=== PATIENT | female | born 1990 | race Caucasian/White ===

== ENCOUNTER 2018-08-03 09:14 | Emergency (ER) | payer MEDICAID, SELFPAY ==
--- NOTE | 2018-08-03 09:19 | W.ED.GENAD ---
Discharge Plan Disposition Patient Disposition: HOME Condition: Stable Discharge Details Chief Complaint: Nk/Back Pain Clinical Impression: Back contusion Primary Care Provider: [place] [facility] Provider: Stephan Mclean Home Meds and New Rx's Prescriptions: New cyclobenzaprine 10 mg tablet 10 mg PO TID PRN (Reason: muscle spasm) Qty: 20 RF: 0 No Action Mirena 1 EACH intrauterine device RF: 0 Discharge Instructions Instructions: Contusion in Adults (ED) Additional Instructions: you can take 1000mg tylenol and 600mg ibuprofen every 6 hours as needed for pain. If you take the cyclobenzaprine do not drink alcohol or operate heavy machinery if pain is not better in a week see your primary care provider return to the emergency department if you have pain in the lower back with high fevers or difficulty urinating Medical Decision Making 28 yo female comes in with lower back pain that started yesterday after her child tackled her from the front and caused her to land on her back. Denies head trauma or loc, no headache, vomit and no neck pain even on rom, meets criteria per [facility] head ct rules and nexus to not image head or c spine. comes in with lower back pain that is throughout the lumbar region, does have some midline pain. no saddle anesthesia, weakness or other findings at this time to suggest cauda equina and no fevers or reported ivdu so doubt sea. will obtain xray to eval for fx though I suspect contusion xray negative on my read, still no deficits on neuro exam. Isaías ld/c home, advised f/u with pcp and return precautions given Differential Diagnosis back strain, contusion, sprain, fx Imaging Data Radiologic Study: Attestation: I personally reviewed and interpreted this imaging study as follows: Imaging: X-Ray My impression: no acute findings HPI General Mode of arrival: ambulatory. Date/Time Provider Initiated Documentation: 08/03/18 09:19. Limitations to Documentation: no limitations. Information obtained by: patient. History of Present Illness 28 year old F presents to the emergency department with the chief complaint of back pain, described as moderate, with intensity rated at 5. Quality is described as aching, and is localized to the back. Patient reports no radiation. Patient started experiencing this day(s) (1) and it has been constant. No relieving factors improve symptom(s), No exacerbating factors reported . Patient notes no other symptoms.. Patient did receive the following treatments prior to arrival, NSAID Related Data Home Medications Medication Instructions Recorded Confirmed Mirena 07/26/17 cyclobenzaprine 10 mg PO TID PRN #20 tab 08/03/18 Previous Rx's Medication Instructions Recorded cyclobenzaprine 10 mg PO TID PRN #20 tab 08/03/18 Allergies Allergy/AdvReac Type Severity Reaction Status Date / Time amoxicillin Allergy Mild Hives Unverified 08/03/18 09:26 codeine Allergy Mild Hives Unverified 08/03/18 09:26 ciprofloxacin [From Ciprodex] AdvReac Mild Other (See Unverified 08/03/18 09:26 Comment) dexamethasone [From Ciprodex] AdvReac Mild Other (See Unverified 08/03/18 09:26 Comment) Review of Systems Review of Systems All systems reviewed & are unremarkable except as noted in HPI and below Constitutional Denies chills, Denies fever(s) and Denies weakness Eyes Denies loss of vision Cardiovascular Denies chest pain and Denies dyspnea Respiratory Denies cough and Denies dyspnea Gastrointestinal Denies abdominal pain, Denies nausea and Denies vomiting Genitourinary Denies dysuria Musculoskeletal Denies joint swelling Integumentary/Breasts Denies rash Neurologic Denies loss of vision and Denies weakness [facility] Social History Do you feel safe in your relationship?: Yes Exam Const General: no acute distress Orientation: alert HENMT Head: normal to inspection Ears: external ears normal General nose exam: external nose normal Mouth: moist mucous membranes Eyes General: appearance normal, both eyes and all related structures Neck Neck: normal visual inspection Resp Effort & Inspection: normal respiratory effort and able to speak in complete sentences Cardio Rate: regular rate Back/Spine/Pelvis Back: no CVA tenderness Skin General skin exam: no rashes or lesions noted Neuro General: alert and oriented x3 Extrem General: normal to inspection Psych Mental Status: mental status grossly normal
[2018-08-03 09:22] VITALS: BP 116/67; PULSE 67; RESP 14; TEMP 36.5; O2SAT 100
--- NOTE | 2018-08-03 09:27 | DI.RAD_ITS ---
SYMPTOM/DIAGNOSIS: PAIN, S/P FALL LUMBAR SPINE: The vertebral bodies are intact. The disc spaces are well maintained. The pedicle, spinous and transverse processes are unremarkable. There is no evidence of spondylosis or spondylolisthesis and the facet joints are intact. No abnormality involving the sacrum or sacroiliac joints is apparent. An IUD is incidentally noted in the pelvis. SUMMARY: No evidence of a fracture or subluxation. Normal lumbar spine.
--- NOTE | 2018-08-03 09:29 | ED.GENADUL_ITS ---
Discharge Plan Disposition Patient Disposition: HOME Condition: Stable Discharge Details Chief Complaint: Nk/Back Pain Clinical Impression: Back contusion Primary Care Provider: [place] [facility] Provider: Stephan Mclean Home Meds and New Rx's Prescriptions: New cyclobenzaprine 10 mg tablet 10 mg PO TID PRN (Reason: muscle spasm) Qty: 20 RF: 0 No Action Mirena 1 EACH intrauterine device RF: 0 Discharge Instructions Instructions: Contusion in Adults (ED) Additional Instructions: you can take 1000mg tylenol and 600mg ibuprofen every 6 hours as needed for pain. If you take the cyclobenzaprine do not drink alcohol or operate heavy machinery if pain is not better in a week see your primary care provider return to the emergency department if you have pain in the lower back with high fevers or difficulty urinating Medical Decision Making 28 yo female comes in with lower back pain that started yesterday after her child tackled her from the front and caused her to land on her back. Denies head trauma or loc, no headache, vomit and no neck pain even on rom, meets cri teria per [facility] head ct rules and nexus to not image head or c spine. comes in with lower back pain that is throughout the lumbar region, does have some midline pain. no saddle anesthesia, weakness or other findings at this time to suggest cauda equina and no fevers or reported ivdu so doubt sea. will obtain xray to eval for fx though I suspect contusion xray negative on my read, still no deficits on neuro exam. Isaías ld/c home, advised f/u with pcp and return precautions given Differential Diagnosis back strain, contusion, sprain, fx Imaging Data Radiologic Study: Attestation: I personally reviewed and interpreted this imaging study as follows: Imaging: X-Ray My impression: no acute findings HPI General Mode of arrival: ambulatory . Date/Time Provider Initiated Documentation: 08/03/18 09:19 . Limitations to Documentation: no limitations . Information obtained by: patient . History of Present Illness 28 year old F presents to the emergency department with the chief complaint of back pain, described as moderate, with intensity rated at 5. Quality is described as aching, and is localized to the back. Patient reports no radiation. Patient started experiencing this day(s) (1) and it has been constant. No relieving factors improve symptom(s), No exacerbating factors reported . Patient notes no other symptoms.. Patient did receive the following treatments prior to arrival, NSAID Related Data Home Medications Medication Instructions Recorded Confirmed Mirena 07/26/17 cyclobenzaprine 10 mg PO TID PRN #20 tab 08/03/18 Previous Rx's Medication Instructions Recorded cyclobenzaprine 10 mg PO TID PRN #20 tab 08/03/18 Allergies Allergy/AdvReac Type Severity Reaction Status Date / Time amoxicillin Allergy Mild Hives Unverified 08/03/18 09:26 codeine Allergy Mild Hives Unverified 08/03/18 09:26 ciprofloxacin [From Ciprodex] AdvReac Mild Other (See Unverified 08/03/18 09:26 Comment) dexamethasone [From Ciprodex] AdvReac Mild Other (See Unverified 08/03/18 09:26 Comment) Review of Systems Review of Systems All systems reviewed & are unremarkable except as noted in HPI and below Constitutional Denies chills, Denies fever(s) and Denies weakness Eyes Denies loss of vision Cardiovascular Denies chest pain and Denies dyspnea Respiratory Denies cough and Denies dyspnea Gastrointestinal Denies abdominal pain, Denies nausea and Denies vomiting Genitourinary Denies dysuria Musculoskeletal Denies joint swelling Integumentary/Breasts Denies rash Neurologic Denies loss of vision and Denies weakness [facility] Social History Do you feel safe in your relationship?: Yes Exam Const General: no acute distress Orientation: alert HENMT Head: normal to inspection Ears: external ears normal General nose exam: external nose normal Mouth: moist mucous membranes Eyes General: appearance normal, both eyes and all related structures Neck Neck: normal visual inspection Resp Effort & Inspection: normal respiratory effort and able to speak in complete sentences Cardio Rate: regular rate Back/Spine/Pelvis Back: no CVA tenderness Skin General skin exam: no rashes or lesions noted Neuro General: alert and oriented x3 Extrem General: normal to inspection Psych Mental Status: mental status grossly normal
[2018-08-03] MEDS: Ibuprofen 600 MG TAB PO (09:31)
== END 2018-08-03 10:25 | disposition home or self-care (01) ==
PROVIDERS: Emergency Provider Emergency Medicine; PCP Family Medicine
DX: M54.5 Low back pain (principal); S30.0XXA Contusion of lower back and pelvis, initial encounter; W50.0XXA Accidental hit or strike by another person, initial encounter; W18.39XA Other fall on same level, initial encounter
CPT/HCPCS: 81025; 99283; 72110